=== PATIENT | female | born 1960 | race Caucasian/White ===

== ENCOUNTER 2017-12-17 07:06 | Emergency (ER) | payer MEDICARE, MEDICAID ==
[2017-12-17 07:17] VITALS: BP 128/104
--- NOTE | 2017-12-17 07:17 | ED Physician Documentation ---
PD HPI DYSPNEA - Stated complaint Stated Complaint: SOA/WHEEZING - History obtained from History obtained from: Patient - History of Present Illness Timing - onset: How many weeks ago (2-3) Timing - onset during: Light activity, Exertion Timing - duration: Weeks Timing - details: Gradual onset, Waxing and waning Inciting event(s): Immobilization/travel (drove from [place] to here, arrived yesterday but was feeling dyspnea for couple of weeks before starting up here.) . No: Out of meds, URI Improved by: Rest, Sitting up Worsened by: Exertion, Laying flat, Coughing Associated symptoms: Cough, Wheezing, Bilateral edema (chronic and says her edema is less than common (she had increased her Lasix the past 3 days and has not noted improved breathing).). No: Fever, Hemoptysis, Chest pain / discomfort Similar symptoms before: Diagnosis (COPD and has albuterol inhaler but it makes her shaky. Has had CHF with cardiomyopathy with EF 30% by ECHO a year or so ago. Has had angina with dyspnea and had stent placed about 10 years ago. Does have some environmental allergies as well.) Recently seen: Not recently seen (saw her PCP in [place] about a month ago, and [facility] about 3 months ago.) Review of Systems Constitutional: reports: Myalgias, Fatigue. denies: Fever, Chills Nose: reports: Congestion. denies: Rhinorrhea / runny nose Throat: denies: Sore throat Cardiac: denies: Chest pain / pressure, Palpitations Respiratory: reports: Dyspnea, Cough, Wheezing GI: denies: Abdominal Pain, Nausea, Vomiting, Diarrhea, Bloody / black stool : denies: Dysuria, Frequency Skin: denies: Rash, Abrasion (s) Musculoskeletal: reports: Extremity swelling (chronic). denies: Neck pain, Back pain Neurologic: reports: Generalized weakness. denies: Focal weakness, Numbness, Near syncope Endocrine: denies: Weight loss Immunocompromised: denies: Immunocompromised PD PAST MEDICAL HISTORY - Past Medical History Cardiovascular: Congestive heart failure, Valve disorder Respiratory: COPD Neuro: None Endocrine/Autoimmune: None GI: None HEENT: None - Present Medications Home Medications: Ambulatory Orders Medication Instructions Recorded Confirmed Benzonatate [Tessalon] 100 mg PO TID PRN #25 capsule 12/17/17 Carvedilol [Coreg] 1 tab PO DAILY 12/17/17 12/17/17 Dexamethasone [Decadron] 4 mg PO DAILY #5 tablet 12/17/17 Doxycycline Monohydrate 100 mg PO BID #14 tablet 12/17/17 Furosemide [Lasix] 1 tab PO DAILY 12/17/17 12/17/17 Levalbuterol Tartrate [Xopenex Hfa] 2 puffs IH QID PRN #1 hfa.aer.ad 12/17/17 Potassium Chloride 1 tab PO DAILY 12/17/17 12/17/17 Valsartan [Diovan] 1 tab PO DAILY 12/17/17 12/17/17 - Allergies Allergies/Adverse Reactions: Allergies Allergy/AdvReac Type Severity Reaction Status Date / Time No Known Drug Allergies Allergy Verified 12/17/17 09:30 PD ED PE NORMAL - Vitals Vital signs reviewed: Yes - General General: Alert and oriented X 3, No acute distress, Well developed/nourished, Other (frequent cough with wheezing sound audibly with cough. Slight hoarse sound. ) - HEENT HEENT: Ears normal, Moist mucous membranes, Pharynx benign - Neck Neck: Supple, no meningeal sign, No adenopathy, No JVD, No bruit - Cardiac Cardiac: RRR, No rub, Other (1/6 systolic murmur at left chest without radiation. ) - Respiratory Respiratory: No: Clear bilaterally (scattered wheezing without wet sounds. ) - Abdomen Abdomen: Soft, Non tender - Back Back: No CVA TTP - Derm Derm: Normal color - Extremities Extremities: No deformity, No tenderness to palpate, Normal ROM s pain, No calf tenderness / cord, Other (1+ edema in both legs and ankles symmetrically. No calf tenderness. ) - Neuro Neuro: Alert and oriented X 3, No motor deficit, Normal speech Results - Vitals Vitals: Vital Signs - 24 hr 12/17/17 12/17/17 07:13 10:00 Temperature 36.2 C L Heart Rate 96 92 Respiratory 20 16 Rate Blood Pressure 128/104 H O2 Saturation 99 Oxygen O2 Source Room air - EKG (time done) 07:17 Rate: Rate (enter#) (91) Rhythm: NSR [place]: Normal Intervals: Normal [place] QRS: Normal Ischemia: Normal ST segments. No: ST elevation c/w ischemia, ST depression, T wave inversion (but some flattening laterally) Compare to prior EKG: Old EKG unavailable - Labs Labs: Laboratory Tests 12/17/17 12/17/17 12/17/17 08:15 08:15 08:15 WBC 9.0 RBC 4.67 Hgb 13.7 Hct 41.4 MCV 88.8 MCH 29.3 MCHC 33.0 RDW 16.8 H Plt Count 234 MPV 7.8 L Neut # 6.0 Lymph # 2.0 Power # 0.7 Eos # 0.2 Baso # 0.1 Absolute Nucleated RBC 0.00 Nucleated RBC % 0.0 Sodium 135 Potassium 3.9 Chloride 101 Carbon Dioxide 25 Anion Gap 9.0 BUN 24 H Creatinine 1.0 Estimated GFR (MDRD) 57 L Glucose 145 H Calcium 8.8 Magnesium 1.9 Total Bilirubin 0.6 AST 47 H ALT 45 Alkaline Phosphatase 97 Troponin I 0.04 B-Natriuretic Peptide Total Protein 6.0 L Albumin 3.4 Globulin 2.6 Albumin/Globulin Ratio 1.3 Lipase 32 12/17/17 08:15 WBC RBC Hgb Hct MCV MCH MCHC RDW Plt Count MPV Neut # Lymph # Power # Eos # Baso # Absolute Nucleated RBC Nucleated RBC % Sodium Potassium Chloride Carbon Dioxide Anion Gap BUN Creatinine Estimated GFR (MDRD) Glucose Calcium Magnesium Total Bilirubin AST ALT Alkaline Phosphatase Troponin I B-Natriuretic Peptide 1221 H Total Protein Albumin Globulin Albumin/Globulin Ratio Lipase - Rads (name of study) chest Radiology: Prelim report reviewed (early small infiltrate possible right lower; mild vascular congestion. enlarged heart. ), EMP read contemporaneously PD MEDICAL DECISION MAKING - ED course Complexity details: reviewed results, re-evaluated patient (she feels improved with the xopenex neb and not shaky like she gets from regular albuterol. ), considered differential (sounds likely more pulmonary with COPD and cough/ wheezing, consider early pneumonia. Some element of CHF but not the main component. ), d/w patient Departure - Departure Disposition: 01 Home, Self Care Clinical Impression: Mild chronic obstructive pulmonary disease Dyspnea Qualifiers: Dyspnea type: shortness of breath Qualified Code(s): R06.02 - Shortness of breath Congestive heart failure Qualifiers: Heart failure type: unspecified Heart failure chronicity: acute on chronic Qualified Code(s): I50.9 - Heart failure, unspecified Condition: Stable Record reviewed to determine appropriate education?: Yes Instructions: ED CHF General, ED COPD Flare Follow-Up: [facility] [Provider Group] [facility] [Provider Group] Prescriptions: Benzonatate [Tessalon] 100 mg PO TID PRN #25 capsule PRN Reason: Cough Dexamethasone [Decadron] 4 mg PO DAILY #5 tablet Doxycycline Monohydrate 100 mg PO BID #14 tablet Levalbuterol Tartrate [Xopenex Hfa] 2 puffs IH QID PRN #1 hfa.aer.ad PRN Reason: Wheezing Comments: I think your trouble breathing is more lung related and there does look to even be possibly an early pneumonia on x-ray. There is some element of increased fluid so would continue the doubled Lasix for 2-3 more days. However I would focus more on the lungs with the leave albuterol inhaler which hopefully will not make you as shaky has a regular albuterol. Also doxycycline antibiotic twice daily for a week and Decadron steroid anti-inflammatory daily for 5 more days. Use Tessalon if needed for cough. Call to initiate a local provider; I gave a couple of clinic numbers in the area. Recheck if not improving over the next few days.
--- NOTE | 2017-12-17 08:15 | XRAY Preliminary Report ---
Exam: XR CHEST 2 VIEW X-RAY IMPRESSION: 1. Ill-defined patchy opacity at the right lung base may represent developing aspiration/pneumonia, o r asymmetric edema. 2. Findings suggestive of COPD. 3. Cardiomegaly with mildly prominent pulmonary vasculature suggesting borderline CHF/volume overload . [facility] SITE ID: [id number]
[2017-12-17 08:30] LABS: BASOPHILS # (AUTO) 0.1 10^3/uL (0.0-0.1); BASOPHILS % (AUTO) 0.6 %; EOSINOPHILS # (AUTO) 0.2 10^3/uL (0.0-0.7); HGB - HEMOGLOBIN 13.7 g/dL (12.0-16.0); LYMPHOCYTES % (AUTO) 22.4 %; MEAN CORPUSCULAR HEMOGLOBIN 29.3 pg (27.0-31.0); MEAN CORPUSCULAR VOLUME 88.8 fL (81.0-99.0); MEAN PLATELET VOLUME 7.8 fL (7.9-10.8); MONOCYTES # (AUTO) 0.7 10^3/uL (0.0-1.0); MONOCYTES % (AUTO) 8.2 %; NEUTROPHILS % (AUTO) 66.8 %; PLT - PLATELET COUNT 234 10^3/uL (130-450); RED BLOOD COUNT 4.67 10^6/uL (4.20-5.40); RED CELL DISTRIBUTION WIDTH 16.8 % (12.0-15.0)
--- NOTE | 2017-12-17 08:36 | XRAY Report ---
EXAM: CHEST RADIOGRAPHY EXAM DATE: 12/17/2017 08:06 AM. CLINICAL HISTORY: Progressive dyspnea for weeks/days. COMPARISON: None. TECHNIQUE: 2 views. FINDINGS: Lungs/Pleura: The lungs are hyperexpanded with flattening of the diaphragm and increased retrosternal clear space. There is an ill-defined hazy right lower lung opacity on frontal view, not definitely c orroborated on lateral view. Pulmonary vasculature is borderline engorged with mild bronchial wall th ickening. No pleural effusion. No pneumothorax. Mediastinum: There is mild cardiomegaly. The thoracic aorta is mildly tortuous. Cardiomediastinal [place] is otherwise unremarkable. Other: No acute displaced fracture demonstrated with old healed left rib fractures and degenerative c hanges present at both shoulders. Degenerative spondylosis of the thoracic spine with accentuated kyp hosis. IMPRESSION: 1. Ill-defined patchy opacity at the right lung base may represent developing aspiration/pneumonia, o r asymmetric edema. 2. Findings suggestive of COPD. 3. Cardiomegaly with mildly prominent pulmonary vasculature suggesting borderline CHF/volume overload . [facility] Referring Provider Line: [phone] SITE ID: [id number]
[2017-12-17 08:41] LABS: ALBUMIN 3.4 g/dL (3.2-5.5); ALBUMIN/GLOBULIN RATIO 1.3 (1.0-2.2); BILIRUBIN,TOTAL 0.6 mg/dL (0.2-1.0); CALCIUM 8.8 mg/dL (8.5-10.3); MAGNESIUM 1.9 mg/dL (1.7-2.8)
[2017-12-17] MEDS ORDERED: LEVALBUTEROL 1.25 MG/3 ML NEB INH STA (09:25)
[2017-12-17] MEDS ORDERED: DEXAMETHASONE 10 MG/ML VIAL IVP STA (09:26)
[2017-12-17] MEDS ORDERED: DOXYCYCLINE 100 MG TABLET PO STA (09:26)
[2017-12-17] MEDS ORDERED: FUROSEMIDE 40 MG/4 ML VIAL IVP STA (09:44)
[2017-12-17] MEDS ORDERED: CHERRY SYRUP 10 ML UDC PO ONE (09:46)
[2017-12-17] MEDS ORDERED: ONDANSETRON 4 MG/2 ML VIAL IVP STA (10:36)
== END 2017-12-17 11:12 | disposition home or self-care (01) ==
LOC: ED 07:06
DX: J44.9 Chronic obstructive pulmonary disease, unspecified (principal); I50.9 Heart failure, unspecified
CPT/HCPCS: 36415; 71046; 80053; 83690; 83735; 83880; 84484; 85025; 93005; 96374; 96375; 99283; 99284; A9270; 94640

== ENCOUNTER 2018-02-09 00:59 | Outpatient (CLI) | payer MEDICARE, MEDICAID | END 2018-02-09 01:00 | disposition critical access hospital (66) | LOC: EMS 00:59 | PROVIDERS: ATTEND Surgery | DX: R06.00 Dyspnea, unspecified (principal); R05 Cough | CPT/HCPCS: A0425; A0427 ==

== ENCOUNTER 2018-02-09 01:17 | Emergency (ER) | payer MEDICARE, MEDICAID ==
[2018-02-09] MEDS ORDERED: methylPREDNISolone SUCCINATE 125 MG/2 ML VIAL IVP STA (01:36)
[2018-02-09] MEDS ORDERED: ALBUTEROL NEB 2.5 MG/3 ML INH STA (01:36)
[2018-02-09 01:51] LABS: ALBUMIN 2.9 g/dL (3.2-5.5); ALBUMIN/GLOBULIN RATIO 0.9 (1.0-2.2); BASOPHILS # (AUTO) 0.1 10^3/uL (0.0-0.1); BASOPHILS % (AUTO) 0.8 %; BILIRUBIN,TOTAL 0.8 mg/dL (0.2-1.0); CALCIUM 8.7 mg/dL (8.5-10.3); CREATININE 1.2 mg/dL (0.4-1.0); EOSINOPHILS # (AUTO) 0.1 10^3/uL (0.0-0.7); EOSINOPHILS % (AUTO) 1.6 %; HGB - HEMOGLOBIN 12.2 g/dL (12.0-16.0); LYMPHOCYTES # (AUTO) 1.5 10^3/uL (1.5-3.5); LYMPHOCYTES % (AUTO) 17.7 %; MEAN CORPUSCULAR HEMOGLOBIN 28.8 pg (27.0-31.0); MEAN CORPUSCULAR HGB CONC 31.9 g/dL (32.0-36.0); MEAN CORPUSCULAR VOLUME 90.4 fL (81.0-99.0); MEAN PLATELET VOLUME 7.7 fL (7.9-10.8); MONOCYTES # (AUTO) 1.1 10^3/uL (0.0-1.0); MONOCYTES % (AUTO) 13.1 %; NEUTROPHILS # (AUTO) 5.8 10^3/uL (1.5-6.6); NEUTROPHILS % (AUTO) 66.8 %; PLT - PLATELET COUNT 283 10^3/uL (130-450); RED BLOOD COUNT 4.25 10^6/uL (4.20-5.40); RED CELL DISTRIBUTION WIDTH 18.9 % (12.0-15.0); TOTAL PROTEIN 6.1 g/dL (6.7-8.2); WHITE BLOOD COUNT 8.7 x10^3/uL (4.8-10.8)
[2018-02-09] MEDS ORDERED: ONDANSETRON 4 MG/2 ML VIAL IVP STA (01:58)
[2018-02-09] MEDS ORDERED: ONDANSETRON 4 MG/2 ML VIAL ONE (02:10)
[2018-02-09] MEDS ORDERED: diphenhydrAMINE INJ 50 MG/ML VIAL IVP STA (02:13)
[2018-02-09] MEDS ORDERED: FUROSEMIDE 40 MG/4 ML VIAL IVP STA (02:29)
--- NOTE | 2018-02-09 03:14 | XRAY Report ---
EXAM: CHEST RADIOGRAPHY EXAM DATE: 02/09/2018 02:51 AM. CLINICAL HISTORY: Short of breath. COMPARISON: 12/17/2017. TECHNIQUE: 2 views. FINDINGS: Lungs/Pleura: Diffuse mild interstitial opacities. Small left perihilar opacity may be atelectasis an d/or scarring. No large effusion. No gross pneumothorax. Mediastinum: Mild cardiomegaly. No mediastinal shift. Other: None. IMPRESSION: Mild CHF. [facility] Referring Provider Line: [phone] SITE ID: [id number]
--- NOTE | 2018-02-09 03:18 | ED Physician Documentation ---
PD HPI DYSPNEA - Stated complaint Stated Complaint: SOA - Chief complaint Chief Complaint: Resp - History obtained from History obtained from: Patient, EMS - History of Present Illness Timing - onset: How many weeks ago Timing - details: Gradual onset, Still present Inciting event(s): Out of meds, URI Improved by: Inhaler/neb Associated symptoms: Wheezing. No: Fever, Cough Similar symptoms before: Work up / diagnostics, Treatment Recently seen: Not recently seen - Additional information Additional information: Patient is a 57 year old homeless women with a history of copd and chf who is living in her car at the moment who is presenting to the emergency department for shortness of breath. Patient states that it has been going on for weeks. patient is unable to get insurance so she is unable to fill her medications. patient was feeling short of breath this evening so she called ems. EMS treated the patient with a duoneb enroute. Upon arrival patient was 100% on room air. Review of Systems Constitutional: denies: Fever, Chills Ears: reports: Reviewed and negative Nose: reports: Congestion Cardiac: reports: Pedal edema. denies: Chest pain / pressure, Palpitations Respiratory: reports: Dyspnea, Cough, Wheezing GI: denies: Nausea : reports: Reviewed and negative Neurologic: denies: Generalized weakness, Focal weakness Immunocompromised: denies: Immunocompromised PD PAST MEDICAL HISTORY - Past Medical History Cardiovascular: Congestive heart failure, Valve disorder Respiratory: COPD Endocrine/Autoimmune: None GI: None ANESTHESIOLOGY CRNA: None : None HEENT: None Psych: None, Depression, Anxiety Musculoskeletal: Osteoarthritis Derm: None - Past Surgical History Past Surgical History: Yes Cardiovascular: Coronary stent - Present Medications Home Medications: Ambulatory Orders Medication Instructions Recorded Confirmed Benzonatate [Tessalon] 100 mg PO TID PRN #25 capsule 12/17/17 Carvedilol [Coreg] 1 tab PO DAILY 12/17/17 02/09/18 Furosemide [Lasix] 1 tab PO DAILY 12/17/17 02/09/18 Levalbuterol Tartrate [Xopenex Hfa] 2 puffs IH QID PRN #1 hfa.aer.ad 12/17/17 Potassium Chloride 1 tab PO DAILY 12/17/17 02/09/18 Valsartan [Diovan] 1 tab PO DAILY 04/14/18 06/07/18 Albuterol 2.5 mg INH Q4H PRN #30 neb 02/09/18 Albuterol Sulfate [Proventil Hfa 1 - 2 puffs INH Q4H PRN #1 inhaler 02/09/18 Inhaler] Aspirin [Children's Aspirin] 1 tab PO DAILY 02/09/18 02/09/18 Carvedilol [Coreg] 25 mg PO DAILY #30 tablet 02/09/18 Furosemide [Lasix] 40 mg PO BID #30 tablet 02/09/18 Potassium Chloride 20 meq PO DAILY #30 packet 02/09/18 Valsartan/Hydrochlorothiazide 1 each PO DAILY #30 tablet 02/09/18 [Diovan Hct 160-25 mg Tablet] predniSONE [Prednisone] 40 mg PO DAILY 5 Days tablet 02/09/18 - Allergies Allergies/Adverse Reactions: Allergies Allergy/AdvReac Type Severity Reaction Status Date / Time No Known Drug Allergies Allergy Verified 02/09/18 01:21 - Social History Does the pt smoke?: Yes Smoking Status: Current every day smoker Does the pt drink ETOH?: Yes Does the pt have substance abuse?: No - Immunizations Immunizations are current?: Yes - POLST Patient has POLST: No PD ED PE NORMAL - Vitals Vital signs reviewed: Yes - General General: Alert and oriented X 3 - HEENT HEENT: Atraumatic - Derm Derm: Normal color, Warm and dry - Neuro Neuro: Alert and oriented X 3, No motor deficit, Normal speech PD ED PE EXPANDED - General General: Alert - Neck Neck: JVD present - Cardiac Cardiac: Regular Rate - Respiratory Respiratory: Wheezing, Right upper lobe, Right lower lobe, Left upper lobe, Left lower lobe - Extremities Extremities: Pedal edema bilateral Results - Vitals Vitals: Vital Signs - 24 hr 02/09/18 02/09/18 02/09/18 01:19 01:42 02:15 Temperature 36.7 C Heart Rate 112 H 106 H 116 H Respiratory 24 19 28 H Rate Blood Pressure 124/106 H 133/90 H O2 Saturation 97 97 02/09/18 02/09/18 03:00 03:48 Temperature Heart Rate 117 H 113 H Respiratory 18 18 Rate Blood Pressure 136/89 H 139/78 H O2 Saturation 98 97 Oxygen O2 Source Room air - EKG (time done) 0145 Rate: Rate (enter#) (107) Rhythm: Sinus tachycardia [place]: LAD Ischemia: Q waves, Non specific changes Compare to prior EKG: Unchanged from prior EKG - Labs Labs: Laboratory Tests 02/09/18 02/09/18 02/09/18 01:25 01:25 01:25 WBC 8.7 RBC 4.25 Hgb 12.2 Hct 38.4 MCV 90.4 MCH 28.8 MCHC 31.9 L RDW 18.9 H Plt Count 283 MPV 7.7 L Neut # (Auto) 5.8 Lymph # (Auto) 1.5 [place] # (Auto) 1.1 H Eos # (Auto) 0.1 Baso # (Auto) 0.1 Absolute Nucleated RBC 0.00 Nucleated RBC % 0.0 Sodium 139 Potassium 3.9 Chloride 102 Carbon Dioxide 27 Anion Gap 10.0 BUN 21 H Creatinine 1.2 H Estimated GFR (MDRD) 46 L Glucose 104 H Calcium 8.7 Total Bilirubin 0.8 AST 38 ALT 40 Alkaline Phosphatase 131 H Troponin I 0.08 B-Natriuretic Peptide Total Protein 6.1 L Albumin 2.9 L Globulin 3.2 Albumin/Globulin Ratio 0.9 L Lipase 53 H 02/09/18 01:25 WBC RBC Hgb Hct MCV MCH MCHC RDW Plt Count MPV Neut # (Auto) Lymph # (Auto) [place] # (Auto) Eos # (Auto) Baso # (Auto) Absolute Nucleated RBC Nucleated RBC % Sodium Potassium Chloride Carbon Dioxide Anion Gap BUN Creatinine Estimated GFR (MDRD) Glucose Calcium Total Bilirubin AST ALT Alkaline Phosphatase Troponin I B-Natriuretic Peptide 965 H Total Protein Albumin Globulin Albumin/Globulin Ratio Lipase - Rads (name of study) chest x-ray Radiology: Final report received (mild chf pattern) PD MEDICAL DECISION MAKING - ED course Complexity details: reviewed old records, reviewed results, re-evaluated patient , considered differential, d/w patient ED course: Patient was seen and examined at bedside. ekg was performed and was similar to previous ekg. IV access was gained and labs were drawn. breathing treatments were started and imaging was ordered. When patient returned from imaging patient's labs started to come back. patient had mild chf pattern and was found to have an elevated bnp, slightly improved from previous. Patient was treated with lasix 40mg IV. case was discussed with the hospitalist who stated outpatient follow up was appropriate if the patient was not hypoxic or tachypneaic. Patient was comfortable with the plan and all of the patient's home medications were written for. patient was discharged in stable condition. Departure - Departure Disposition: 01 Home, Self Care Clinical Impression: Congestive heart failure, Mild chronic obstructive pulmonary disease Condition: Good Instructions: COPD Dc, Heart Failure Dc Follow-Up: [facility] [Provider Group] - Tomorrow Prescriptions: Albuterol 2.5 mg INH Q4H PRN #30 neb PRN Reason: Wheezing Albuterol Sulfate [Proventil Hfa Inhaler] 1 - 2 puffs INH Q4H PRN #1 inhaler PRN Reason: Shortness Of Air/Wheezing Carvedilol [Coreg] 25 mg PO DAILY #30 tablet Furosemide [Lasix] 40 mg PO BID #30 tablet Potassium Chloride 20 meq PO DAILY #30 packet predniSONE [Prednisone] 40 mg PO DAILY 5 Days tablet Valsartan/Hydrochlorothiazide [Diovan Hct 160-25 mg Tablet] 1 each PO DAILY #30 tablet Comments: your symptoms today are likely a combination of both your copd and your chf. You will need to continue with your medications on a regular basis. the clinic number has been listed above. [place] it is very important that you get primary care for most of your chronic conditions. YOu should return to the emergency department if your conditions worsen. Discharge Date/Time: 02/09/18 03:49
[2018-02-09 03:49] VITALS: BP 139/78
== END 2018-02-09 03:49 | disposition home or self-care (01) ==
LOC: EDUNIT# → ED 01:17
DX: I50.9 Heart failure, unspecified (principal); I38 Endocarditis, valve unspecified; J44.9 Chronic obstructive pulmonary disease, unspecified; Z95.5 Presence of coronary angioplasty implant and graft; F17.200 Nicotine dependence, unspecified, uncomplicated; R00.0 Tachycardia, unspecified
CPT/HCPCS: 36415; 71046; 80053; 83690; 83880; 84484; 85025; 93005; 94640; 96374; 96375; 99284; J1200

== ENCOUNTER 2018-02-22 06:58 | Outpatient (CLI) | payer MEDICARE | END 2018-02-22 06:59 | disposition critical access hospital (66) | LOC: EMS 06:58 | PROVIDERS: ATTEND Surgery | DX: R06.02 Shortness of breath (principal) | CPT/HCPCS: A0425; A0429 ==

== ENCOUNTER 2018-02-22 07:15 | Emergency (ER) | payer MEDICARE ==
[2018-02-22] MEDS ORDERED: FUROSEMIDE 40 MG/4 ML VIAL IVP STA (07:42)
--- NOTE | 2018-02-22 07:44 | ED Physician Documentation ---
PD HPI DYSPNEA - Stated complaint Stated Complaint: SOA - Chief complaint Chief Complaint: Resp - History obtained from History obtained from: Patient, EMS - History of Present Illness Timing - onset: How many weeks ago (1) Timing - onset during: Light activity Timing - duration: Weeks (1) Timing - details: Gradual onset, Still present, Waxing and waning Inciting event(s): Out of meds, URI, Other (PE) Improved by: Inhaler/neb, Steroids, Rest, Sitting up Worsened by: Exertion Associated symptoms: Cough, Wheezing, Bilateral edema Similar symptoms before: Diagnosis (COPD, PE, pneumonia) Recently seen: Admitted (This is the 4th hospital the patient has been to in the past week.) - Additional information Additional information: 57-year-old homeless female has been evaluated in [place] found to have pulmonary embolus she was transferred to [facility] in [place] and discharged from [facility] in [place] and then admitted to [place]. The patient is a poor historian and unable to give details of the specifics. She does give history consistent with pulmonary embolism she gives history consistent with COPD and pneumonia as well. She had some medications in the back of a friend's van who was not able to get to her things and through all of the patient's medications away. The patient is now called the ambulance with shortness of breath. Review of Systems Constitutional: reports: Fatigue. denies: Fever Eyes: denies: Decreased vision Ears: denies: Ear pain Nose: denies: Rhinorrhea / runny nose, Congestion Throat: denies: Sore throat Cardiac: reports: Chest pain / pressure, Palpitations, Pedal edema Respiratory: reports: Dyspnea, Cough, Wheezing GI: denies: Abdominal Pain, Nausea, Vomiting : denies: Dysuria, Frequency Skin: denies: Rash Musculoskeletal: reports: Extremity swelling. denies: Neck pain, Back pain, Extremity pain Neurologic: denies: Generalized weakness, Focal weakness, Numbness PD PAST MEDICAL HISTORY - Past Medical History Past Medical History: Yes Cardiovascular: Congestive heart failure, Valve disorder Respiratory: COPD Endocrine/Autoimmune: None GI: None [employer]: None : None HEENT: None Psych: None, Depression, Anxiety Musculoskeletal: Osteoarthritis Derm: None - Past Surgical History Past Surgical History: Yes Cardiovascular: Coronary stent - Present Medications Home Medications: Ambulatory Orders Medication Instructions Recorded Confirmed Benzonatate [Tessalon] 100 mg PO TID PRN #25 capsule 12/17/17 Carvedilol [Coreg] 1 tab PO DAILY 12/17/17 02/09/18 Furosemide [Lasix] 1 tab PO DAILY 12/17/17 02/09/18 Levalbuterol Tartrate [Xopenex Hfa] 2 puffs IH QID PRN #1 hfa.aer.ad 12/17/17 Potassium Chloride 1 tab PO DAILY 12/17/17 02/09/18 Valsartan [Diovan] 1 tab PO DAILY 12/17/17 02/09/18 Albuterol 2.5 mg INH Q4H PRN #30 neb 02/09/18 Albuterol Sulfate [Proventil Hfa 1 - 2 puffs INH Q4H PRN #1 inhaler 02/09/18 Inhaler] Aspirin [Children's Aspirin] 1 tab PO DAILY 02/09/18 02/09/18 Carvedilol [Coreg] 25 mg PO DAILY #30 tablet 02/09/18 Furosemide [Lasix] 40 mg PO BID #30 tablet 02/09/18 Potassium Chloride 20 meq PO DAILY #30 packet 02/09/18 Valsartan/Hydrochlorothiazide 1 each PO DAILY #30 tablet 02/09/18 [Diovan Hct 160-25 mg Tablet] predniSONE [Prednisone] 40 mg PO DAILY 5 Days tablet 02/09/18 Albuterol Sulf [Ventolin Hfa 1 - 2 puffs INH Q4HR PRN #1 inhaler 02/22/18 Inhaler] Carvedilol 25 mg PO BID #40 tablet 02/22/18 Furosemide [Lasix] 40 mg PO BID #30 tablet 02/22/18 Potassium Chloride 20 meq PO DAILY #20 packet 02/22/18 Rivaroxaban [Xarelto] 15 mg PO BID #40 tablet 02/22/18 Valsartan 40 mg PO DAILY #20 tablet 02/22/18 - Allergies Allergies/Adverse Reactions: Allergies Allergy/AdvReac Type Severity Reaction Status Date / Time No Known Drug Allergies Allergy Verified 02/09/18 01:21 - Social History Does the pt smoke?: Yes Smoking Status: Current every day smoker Does the pt drink ETOH?: Yes Does the pt have substance abuse?: No - Immunizations Immunizations are current?: Yes - POLST Patient has POLST: No PD ED PE NORMAL - Vitals Vital signs reviewed: Yes (tachy and hyperensive ) - General General: Alert and oriented X 3, Well developed/nourished, Other (dyspneic at rest talking in full sentences with pressured speech. ) - HEENT HEENT: Atraumatic, PERRL, EOMI - Neck Neck: Supple, no meningeal sign - Cardiac Cardiac: Other (tachy to 100 with 2/6 holosystolic murmer at LSB) - Respiratory Respiratory: Other (mild tachypnea with bibasilar rales ) - Abdomen Abdomen: Soft, Non tender - Back Back: No CVA TTP, No spinal TTP - Derm Derm: Normal color, Warm and dry, No rash - Extremities Extremities: No deformity, Other (pitting edema bilaterally ) - Neuro Neuro: No motor deficit, No sensory deficit Eye Opening: Spontaneous Motor: Obeys Commands Verbal: Oriented GCS Score: 15 - Psych Psych: Normal mood, Normal affect Results - Vitals Vitals: Vital Signs - 24 hr 02/22/18 02/22/18 07:17 10:13 Temperature 36.6 C 36.6 C Heart Rate 126 H 108 H Respiratory 18 19 Rate Blood Pressure 162/107 H 148/90 H O2 Saturation 96 100 Oxygen O2 Source Room air Oxygen Flow Rate 2 - EKG (time done) 0802 Rate: Rate (enter#) (111) QRS: LVH Compare to prior EKG: Changed from prior EKG (SPT 02-09-18 LVH has developed) Computer interpretation: Agree with computer - Labs Labs: Laboratory Tests 02/22/18 02/22/18 02/22/18 07:55 07:55 07:55 WBC 15.4 H RBC 4.33 Hgb 12.6 Hct 39.2 MCV 90.5 MCH 29.2 MCHC 32.2 RDW 18.3 H Plt Count 343 MPV 6.6 L Neut # (Auto) 13.1 H Lymph # (Auto) 1.0 L Weakley # (Auto) 1.1 H Eos # (Auto) 0.1 Baso # (Auto) 0.1 Absolute Nucleated RBC 0.00 Nucleated RBC % 0.0 PT 11.8 INR 1.0 Sodium 137 Potassium 3.2 L Chloride 102 Carbon Dioxide 28 Anion Gap 7.0 BUN 15 Creatinine 0.8 Estimated GFR (MDRD) 73 L Glucose 106 H Calcium 8.7 Total Bilirubin 1.1 H AST 25 ALT 27 Alkaline Phosphatase 77 Troponin I B-Natriuretic Peptide Total Protein 6.0 L Albumin 3.0 L Globulin 3.0 Albumin/Globulin Ratio 1.0 Lipase 26 Urine Color Urine Clarity Urine pH Ur Specific Sidney Urine Protein Urine Glucose (UA) Urine Ketones Urine Occult Blood Urine Nitrite Urine Bilirubin Urine Urobilinogen Ur Leukocyte Esterase Urine RBC Urine WBC Ur Squamous Epith Cells Urine Bacteria Ur Microscopic Review Urine Culture Comments Urine Opiates Screen Ur Oxycodone Screen Urine Methadone Screen Ur Propoxyphene Screen Ur Barbiturates Screen Ur Tricyclics Screen Ur Phencyclidine Scrn Ur Amphetamine Screen U Methamphetamines Scrn U Benzodiazepines Scrn Urine Cocaine Screen U Cannabinoids Screen 02/22/18 02/22/18 02/22/18 07:55 07:55 08:14 WBC RBC Hgb Hct MCV MCH MCHC RDW Plt Count MPV Neut # (Auto) Lymph # (Auto) Weakley # (Auto) Eos # (Auto) Baso # (Auto) Absolute Nucleated RBC Nucleated RBC % PT INR Sodium Potassium Chloride Carbon Dioxide Anion Gap BUN Creatinine Estimated GFR (MDRD) Glucose Calcium Total Bilirubin AST ALT Alkaline Phosphatase Troponin I 0.04 B-Natriuretic Peptide 1814 H Total Protein Albumin Globulin Albumin/Globulin Ratio Lipase Urine Color YELLOW Urine Clarity CLEAR Urine pH 8.0 H Ur Specific Sidney 1.010 Urine Protein 30 H Urine Glucose (UA) NEGATIVE Urine Ketones NEGATIVE Urine Occult Blood TRACE-INTA Urine Nitrite NEGATIVE Urine Bilirubin NEGATIVE Urine Urobilinogen 0.2 (NORMAL) Ur Leukocyte Esterase SMALL H Urine RBC 0-5 Urine WBC 6-10 H Ur Squamous Epith Cells FEW Squamous Urine Bacteria Many H Ur Microscopic Review INDICATED Urine Culture Comments INDICATED Urine Opiates Screen NEGATIVE Ur Oxycodone Screen NEGATIVE Urine Methadone Screen NEGATIVE Ur Propoxyphene Screen NEGATIVE Ur Barbiturates Screen NEGATIVE Ur Tricyclics Screen NEGATIVE Ur Phencyclidine Scrn NEGATIVE Ur Amphetamine Screen NEGATIVE U Methamphetamines Scrn NEGATIVE U Benzodiazepines Scrn NEGATIVE Urine Cocaine Screen NEGATIVE U Cannabinoids Screen POSITIVE H - Rads (name of study) 2 veiw chest Radiology: Prelim report reviewed (Impression: 1. Mild congestive heart failure. Developing left lung opacity could be due to loculated pleural fluid, focal airspace disease or nodule. Recommend short-term follow-up to ensure resolution.), EMP read indepedently, See rad report Procedures - IVC sono (time) 8036 Bedside IVC sono: IVC measures (cm) (1.76), IVC collapsed c insp (cm) (1.27), High CVP PD MEDICAL DECISION MAKING - ED course Complexity details: reviewed old records, reviewed results, re-evaluated patient , considered differential, d/w patient ED course: 57-year-old homeless female has developed pulmonary embolism on top of a prior existing history of coronary artery disease and COPD. In addition she has a mass in her left lung that is concerning for malignancy. The patient has some evidence of mental illness and she has signed out AGAINST MEDICAL ADVICE from two different hospitals 3 times in the past week. She is wanting to leave now to catch a plane to go to [place]. She apparently has some resources there where she will not be homeless. She is requesting her medications to be filled. There is a list from her hospitalization in [facility] and we will re-print the needed medications. - Sepsis Event Vital Signs: Vital Signs - 24 hr 02/22/18 02/22/18 07:17 10:13 Temperature 36.6 C 36.6 C Heart Rate 126 H 108 H Respiratory 18 19 Rate Blood Pressure 162/107 H 148/90 H O2 Saturation 96 100 Oxygen O2 Source Room air Oxygen Flow Rate 2 Departure - Departure Disposition: 01 Home, Self Care Clinical Impression: Pulmonary embolism and infarction, Pulmonary mass Congestive heart failure Qualifiers: Heart failure type: systolic Heart failure chronicity: acute on chronic Qualified Code(s): I50.23 - Acute on chronic systolic (congestive) heart failure COPD (chronic obstructive pulmonary disease) Qualifiers: COPD type: unspecified COPD Qualified Code(s): J44.9 - Chronic obstructive pulmonary disease, unspecified Condition: Serious Instructions: COPD Dc, Embolism Pulmonary Dc, ED CHF General, ED Nodule Solitary Pulmonary Follow-Up: Your, doctor [Other] Prescriptions: Albuterol Sulf [Ventolin Hfa Inhaler] 1 - 2 puffs INH Q4HR PRN #1 inhaler PRN Reason: Shortness Of Air/Wheezing Carvedilol 25 mg PO BID #40 tablet Furosemide [Lasix] 40 mg PO BID #30 tablet Potassium Chloride 20 meq PO DAILY #20 packet Rivaroxaban [Xarelto] 15 mg PO BID #40 tablet Valsartan 40 mg PO DAILY #20 tablet Comments: Today it appears you are faced with a number of medical issues. You have had a pulmonary embolism which is a serious condition and requires daily use of a blood thinner. Do not stop taking this medication. In addition there is a pulmonary nodule on your chest x-ray that will need follow-up when you arrive to see your new doctor. Discharge Date/Time: 02/22/18 10:25
[2018-02-22 08:01] LABS: BASOPHILS # (AUTO) 0.1 10^3/uL (0.0-0.1); BASOPHILS % (AUTO) 0.8 %; EOSINOPHILS # (AUTO) 0.1 10^3/uL (0.0-0.7); EOSINOPHILS % (AUTO) 0.6 %; HGB - HEMOGLOBIN 12.6 g/dL (12.0-16.0); LYMPHOCYTES % (AUTO) 6.7 %; MEAN CORPUSCULAR HEMOGLOBIN 29.2 pg (27.0-31.0); MEAN CORPUSCULAR HGB CONC 32.2 g/dL (32.0-36.0); MEAN CORPUSCULAR VOLUME 90.5 fL (81.0-99.0); MEAN PLATELET VOLUME 6.6 fL (7.9-10.8); MONOCYTES # (AUTO) 1.1 10^3/uL (0.0-1.0); MONOCYTES % (AUTO) 7.1 %; NEUTROPHILS # (AUTO) 13.1 10^3/uL (1.5-6.6); NEUTROPHILS % (AUTO) 84.8 %; PLT - PLATELET COUNT 343 10^3/uL (130-450); RED BLOOD COUNT 4.33 10^6/uL (4.20-5.40); RED CELL DISTRIBUTION WIDTH 18.3 % (12.0-15.0); WHITE BLOOD COUNT 15.4 x10^3/uL (4.8-10.8)
[2018-02-22 08:17] LABS: BILIRUBIN,TOTAL 1.1 mg/dL (0.2-1.0); CALCIUM 8.7 mg/dL (8.5-10.3); CREATININE 0.8 mg/dL (0.4-1.0)
[2018-02-22 08:18] LABS: PT - PROTHROMBIN TIME 11.8 secs (9.9-12.6)
[2018-02-22 08:22] LABS: MUDS CUTOFF CONCENTRATIONS CUTOFF CONC BELOW:
[2018-02-22 08:30] LABS: BILIRUBIN,URINE NEGATIVE (NEGATIVE); GLUCOSE, URINE (UA) NEGATIVE (NEGATIVE); KETONES,URINE (UA) NEGATIVE (NEGATIVE); LEUKOCYTE ESTERASE, URINE SMALL (NEGATIVE); NITRITE,URINE NEGATIVE (NEGATIVE); OCCULT BLOOD,URINE TRACE-INTA (NEGATIVE); PROTEIN,URINE 30 mg/dL (NEGATIVE); UROBILINOGEN,URINE 0.2 (NORMAL) E.U./dL (NORMAL)
[2018-02-22 08:32] LABS: CLARITY,URINE CLEAR (CLEAR)
[2018-02-22 08:42] LABS: AMPHETAMINE SCREEN,URINE NEGATIVE (NEGATIVE); BENZODIAZEPINES SCREEN, URINE NEGATIVE (NEGATIVE); COCAINE SCREEN URINE NEGATIVE (NEGATIVE); METHADONE SCREEN, URINE NEGATIVE (NEGATIVE); METHAMPHETAMINES SCREEN, URINE NEGATIVE (NEGATIVE); OPIATE SCREEN, URINE NEGATIVE (NEGATIVE); OXYCODONE SCREEN, URINE NEGATIVE (NEGATIVE); PROPOXYPHENE SCREEN, URINE NEGATIVE (NEGATIVE); TRICYCLIC ANTIDEPRESSANT,URINE NEGATIVE (NEGATIVE)
--- NOTE | 2018-02-22 08:49 | XRAY Report ---
Procedure Date: 02/22/2018 Accession Number: [id number] / [id number] Procedure: XR - Chest 2 View X-Ray CPT Code: 16035 FULL RESULT: EXAM: CHEST RADIOGRAPHY EXAM DATE: 02/22/2018 08:24 AM. CLINICAL HISTORY: Shortness of breath COMPARISON: Chest x-rays from 12/17/2017 and 02/09/2018. TECHNIQUE: 2 views. FINDINGS: Lungs/Pleura: Developing left midlung opacity projecting in between left posterior seventh and eighth ribs. Lateral left mid pleural thickening. Small bilateral pleural effusions. Mediastinum: Cardiomegaly. Other: Probable old posterolateral left seventh rib fracture. Potential right shoulder loose body. IMPRESSION: 1. Mild congestive heart failure. 2. A developing left midlung opacity could be due to loculated pleural fluid, focal airspace disease or nodule. Recommend short-term follow-up to ensure resolution. [facility]
[2018-02-22 08:51] LABS: BACTERIA,URINE Many /HPF (None Seen); RBC,URINE 0-5 /HPF (0-5); SQUAMOUS EPITHELIAL CELL,UR FEW Squamous (<= Few)
[2018-02-22 10:14] VITALS: BP 148/90
== END 2018-02-22 10:25 | disposition home or self-care (01) ==
LOC: EDUNIT# → ED 07:15
DX: I26.99 Other pulmonary embolism without acute cor pulmonale (principal); I50.23 Acute on chronic systolic (congestive) heart failure; J44.9 Chronic obstructive pulmonary disease, unspecified; F17.200 Nicotine dependence, unspecified, uncomplicated; Z79.82 Long term (current) use of aspirin; F32.9 Major depressive disorder, single episode, unspecified; F41.9 Anxiety disorder, unspecified; Z79.899 Other long term (current) drug therapy
CPT/HCPCS: 36415; 71046; 80053; 80306; 81001; 81003; 83690; 83880; 84484; 85025; 85610; 87086; 87181; 93005; 96374; 99283; 99284